=== PATIENT | female | born 1950 | race Caucasian/White ===

== ENCOUNTER 2020-11-18 15:34 | Observation (INO) | payer OTHER, MEDICAID, SELFPAY ==
[~2020-11-18] VITALS: Ht 170.2 cm; Wt 101.3 kg
[2020-11-18 15:35] VITALS: BP_SYST 139
[2020-11-18 16:23] LABS: BASOPHILS % (AUTO) 0.8 % (0.0-2.0); EOSINOPHILS # (AUTO) 0.1 K/uL (0.0-0.4); EOSINOPHILS % (AUTO) 1.2 % (0.0-4.0); HEMATOCRIT 39.7 % (36-48); HEMOGLOBIN 13.3 g/dL (12.0-16.0); LYMPHOCYTES # (AUTO) 0.6 K/uL (1.0-5.5); LYMPHOCYTES % (AUTO) 10.7 % (20.5-51.5); MEAN CORPUSCULAR HEMOGLOBIN 28 pg (27-31); MEAN CORPUSCULAR HGB CONC 34 % (32-36); MEAN CORPUSCULAR VOLUME 84 fL (79.0-98.0); MONOCYTES # (AUTO) 0.3 K/uL (0.0-1.0); MONOCYTES % (AUTO) 5.5 % (1.7-9.3); NEUTROPHILS # (AUTO) 4.8 K/uL (1.8-7.7); NEUTROPHILS % (AUTO) 81.8 % (40.0-70.0); PLATELET COUNT (AUTO) 130 K/uL (130-430); RED CELL DISTRIBUTION WIDTH 15.2 % (9.0-15.0); WHITE BLOOD COUNT (AUTO) 5.9 K/uL (4.8-10.8)
[2020-11-18 16:37] LABS: CALCIUM 9.2 mg/dL (8.4-11.0); CREATININE 1.7 mg/dL (0.55-1.30); POTASSIUM 3.7 mmol/L (3.5-5.1)
[2020-11-18 16:46] LABS: ALBUMIN 3.2 g/dL (3.4-4.8); TOTAL BILIRUBIN 0.3 mg/dL (0.0-1.0)
[2020-11-18] MEDS ORDERED: GABA-529 PO (18:30)
[2020-11-18] MEDS ORDERED: PANT20TA2 PO (18:30)
[2020-11-18] MEDS ORDERED: AMLO10TA88 PO (18:30)
[2020-11-18] MEDS ORDERED: METO25TA6 PO (18:30)
[2020-11-18] MEDS ORDERED: LOSA25TA3 PO (18:30)
[2020-11-18] MEDS ORDERED: CETI-250 PO (18:30)
[2020-11-18] MEDS ORDERED: LIP10 PO (18:30)
[2020-11-18] MEDS ORDERED: TRAZ300T11 PO (18:30)
[2020-11-18] MEDS ORDERED: MORP15TA60 PO (18:30)
[2020-11-18] MEDS ORDERED: NALOXONE HCL 0.4 MG/ML AMP (NARCAN) IVP PRN (19:15)
[2020-11-18] MEDS ORDERED: ALBUTEROL SULFATE 0.083% 2.5 MG/3 ML VIAL.NEB INH PRN (19:15)
[2020-11-18] MEDS ORDERED: ACETAMINOPHEN 325 MG TABLET PO PRN (19:15)
[2020-11-18] MEDS ORDERED: MORPHINE 2 MG/ML INJ. SYRINGE IVP PRN (19:30)
[2020-11-18] MEDS ORDERED: METOPROLOL TARTRATE 25 MG TABLET PO SCH (21:00)
[2020-11-18] MEDS: GABAPENTIN 100 MG CAPSULE PO SCH (21:18)
[2020-11-18] MEDS: traZODone HCL 50 MG TABLET (DESYREL) PO SCH (21:18)
[2020-11-18] MEDS: HYDROcodone/ACETAMIN 5-325 MG TAB (NORCO/ VICODIN) PO PRN (21:19)
[2020-11-18 22:45] VITALS: BP_SYST 152
[2020-11-19 01:45] VITALS: BP_SYST 163
[2020-11-19] MEDS: HYDROcodone/ACETAMIN 5-325 MG TAB (NORCO/ VICODIN) PO PRN ×2 (04:15→12:35)
[2020-11-19 07:27] LABS: BASOPHILS % (AUTO) 0.6 % (0.0-2.0); EOSINOPHILS # (AUTO) 0.1 K/uL (0.0-0.4); EOSINOPHILS % (AUTO) 2.1 % (0.0-4.0); HEMATOCRIT 36.2 % (36-48); HEMOGLOBIN 12.1 g/dL (12.0-16.0); LYMPHOCYTES # (AUTO) 1.6 K/uL (1.0-5.5); LYMPHOCYTES % (AUTO) 30.9 % (20.5-51.5); MEAN CORPUSCULAR HEMOGLOBIN 28 pg (27-31); MEAN CORPUSCULAR HGB CONC 33 % (32-36); MEAN CORPUSCULAR VOLUME 85 fL (79.0-98.0); MONOCYTES # (AUTO) 0.3 K/uL (0.0-1.0); MONOCYTES % (AUTO) 6.7 % (1.7-9.3); NEUTROPHILS % (AUTO) 59.7 % (40.0-70.0); PLATELET COUNT (AUTO) 126 K/uL (130-430); RED BLOOD CELL COUNT(AUTO) 4.26 MIL/uL (4.2-6.2); RED CELL DISTRIBUTION WIDTH 15.2 % (9.0-15.0); WHITE BLOOD COUNT (AUTO) 5.1 K/uL (4.8-10.8)
[2020-11-19 07:41] LABS: ALBUMIN 2.8 g/dL (3.4-4.8); CREATININE 1.48 mg/dL (0.55-1.30); POTASSIUM 4.2 mmol/L (3.5-5.1); TOTAL BILIRUBIN 0.3 mg/dL (0.0-1.0)
[2020-11-19 07:56] VITALS: BP_SYST 121
[2020-11-19] MEDS: LOSARTAN POTASSIUM 25 MG TABLET PO SCH (08:51)
[2020-11-19] MEDS: ASPIRIN 81 MG TAB.CHEW PO SCH (08:52)
[2020-11-19] MEDS: PANTOPRAZOLE SODIUM 40 MG TAB PO SCH (08:53)
[2020-11-19] MEDS: GABAPENTIN 100 MG CAPSULE PO SCH ×3 (08:53→21:10)
[2020-11-19] MEDS: amLODIPine BESYLATE 10 MG TABLET PO SCH (08:53)
[2020-11-19] MEDS ORDERED: *LOVENOX 1MG/KG Q12H/PHARMACY XX ONE (09:00)
[2020-11-19] MEDS ORDERED: ENOXAPARIN SODIUM 40 MG/0.4 ML SYRINGE SUBCUT SCH (09:00)
[2020-11-19] MEDS: ATORVASTATIN 20 MG TABLET PO SCH (09:03)
[2020-11-19] MEDS ORDERED: ENOXAPARIN SODIUM 60 MG/0.6 ML SYRINGE SUBCUT ONE (09:30)
[2020-11-19 12:00] VITALS: BP_SYST 135
[2020-11-19] MEDS: MORPHINE SULFATE 15 MG TABLET.ER PO SCH ×2 (16:47→21:10)
[2020-11-19 20:00] VITALS: BP_SYST 131
[2020-11-19] MEDS: ENOXAPARIN SODIUM 100 MG/ML SYRINGE SUBCUT SCH (21:00)
[2020-11-19] MEDS: traZODone HCL 50 MG TABLET (DESYREL) PO SCH (21:10)
[2020-11-20] VITALS: BP_SYST 150
[2020-11-20] MEDS: MORPHINE SULFATE 15 MG TABLET.ER PO SCH (05:30)
[2020-11-20 08:00] VITALS: BP_SYST 125
[2020-11-20 08:22] LABS: BASOPHILS % (AUTO) 0.7 % (0.0-2.0); EOSINOPHILS # (AUTO) 0.1 K/uL (0.0-0.4); EOSINOPHILS % (AUTO) 2.1 % (0.0-4.0); HEMATOCRIT 36.2 % (36-48); HEMOGLOBIN 12.2 g/dL (12.0-16.0); LYMPHOCYTES % (AUTO) 41.1 % (20.5-51.5); MEAN CORPUSCULAR HEMOGLOBIN 28 pg (27-31); MEAN CORPUSCULAR HGB CONC 34 % (32-36); MEAN CORPUSCULAR VOLUME 85 fL (79.0-98.0); MONOCYTES # (AUTO) 0.3 K/uL (0.0-1.0); NEUTROPHILS # (AUTO) 2.4 K/uL (1.8-7.7); NEUTROPHILS % (AUTO) 49.1 % (40.0-70.0); PLATELET COUNT (AUTO) 119 K/uL (130-430); RED BLOOD CELL COUNT(AUTO) 4.29 MIL/uL (4.2-6.2); RED CELL DISTRIBUTION WIDTH 14.8 % (9.0-15.0)
[2020-11-20 08:38] LABS: ALBUMIN 2.7 g/dL (3.4-4.8); CALCIUM 8.9 mg/dL (8.4-11.0); CREATININE 1.54 mg/dL (0.55-1.30); POTASSIUM 4.2 mmol/L (3.5-5.1); TOTAL BILIRUBIN 0.3 mg/dL (0.0-1.0)
[2020-11-20] MEDS: amLODIPine BESYLATE 10 MG TABLET PO SCH ×2 (09:00→09:02)
[2020-11-20] MEDS: GABAPENTIN 100 MG CAPSULE PO SCH (09:01)
[2020-11-20] MEDS: PANTOPRAZOLE SODIUM 40 MG TAB PO SCH (09:01)
[2020-11-20] MEDS: ASPIRIN 81 MG TAB.CHEW PO SCH (09:01)
[2020-11-20] MEDS: ATORVASTATIN 20 MG TABLET PO SCH (09:01)
[2020-11-20] MEDS: LOSARTAN POTASSIUM 25 MG TABLET PO SCH (09:03)
[2020-11-20] MEDS: ENOXAPARIN SODIUM 100 MG/ML SYRINGE SUBCUT SCH (09:08)
[2020-11-20 09:57] VITALS: BP_SYST 125
== END 2020-11-20 17:42 | disposition critical access hospital (66) ==
LOC: SED 15:34 → INTOOBSV 18:02 → STU 18:02
PROVIDERS: ADMIT Internal Medicine Hospice and Palliative Medicine; ATTEND Internal Medicine Hospice and Palliative Medicine
DX: R07.89 Other chest pain (principal); Z20.822 Contact with and (suspected) exposure to COVID-19; I25.119 Atherosclerotic heart disease of native coronary artery with unspecified angina pectoris; I12.9 Hypertensive chronic kidney disease with stage 1 through stage 4 chronic kidney disease, or unspecified chronic kidney disease; N18.9 Chronic kidney disease, unspecified; E78.5 Hyperlipidemia, unspecified; N17.9 Acute kidney failure, unspecified; E88.09 Other disorders of plasma-protein metabolism, not elsewhere classified; E43 Unspecified severe protein-calorie malnutrition; I24.9 Acute ischemic heart disease, unspecified; J44.9 Chronic obstructive pulmonary disease, unspecified; G89.4 Chronic pain syndrome; I73.9 Peripheral vascular disease, unspecified; I25.2 Old myocardial infarction; F17.210 Nicotine dependence, cigarettes, uncomplicated; Z90.2 Acquired absence of lung [part of]; Z99.81 Dependence on supplemental oxygen; Z85.118 Personal history of other malignant neoplasm of bronchus and lung; Z79.01 Long term (current) use of anticoagulants; Z79.899 Other long term (current) drug therapy
CPT/HCPCS: 36415 ×3; 71045 ×2; 80053 ×3; 80061; 83880; 84484 ×3; 85025 ×3; 87426; 93005 ×3; 93306; 94760; 96372 ×2; 99285; G0378 ×3; J1650 ×3

== ENCOUNTER 2020-11-25 19:12 | Emergency (ER) | payer OTHER, SELFPAY ==
[~2020-11-25] VITALS: Ht 170.2 cm; Wt 98.4 kg
[2020-11-25 19:12] VITALS: BP_SYST 138
[~2020-11-25 19:12] MED LIST: AMLO10TA88 PO; CETI-250 PO; GABA-529 PO; LIP10 PO; LOSA25TA3 PO; METO25TA6 PO; MORP15TA60 PO; PANT20TA2 PO; TRAZ300T11 PO
[2020-11-25] MEDS ORDERED: LIP80 PO (19:29)
[2020-11-25] MEDS ORDERED: CLOP75TA32 PO (19:31)
[2020-11-25] MEDS ORDERED: ASA81 PO (19:32)
--- NOTE | 2020-11-25 19:38 | NUR ---
Placed in room 03 . Placed on color television console monitor, blood pressure machine and pulse oximeter. To gown for exam. Side rails up. Report given to YANY Vasquez
--- NOTE | 2020-11-25 19:40 | NUR ---
PATIENT AAOX4 FROM HOME BIB BLS C/O PALPITATION AND CHEST PAIN THAT STARTED EARLIER. CURRENTLY STATING 6/10 ON THE PAIN SCALE. PER PATIENT STATED DISCOMFORT RADIATES TO LEFT ARM. DENIES ANY DIZZINESS OR HEADACHE. VSS. PLACED ON OXYGEN O2 SAT @90%. 2L NC PLACED. USUALLY USES OXYGEN FOR COPD AT HOME. CAP REFILL <3 SECONDS.
--- NOTE | 2020-11-25 19:50 | NUR ---
PORTABLE XRAY DONE AT BEDSIDE.
--- NOTE | 2020-11-25 19:55 | NUR ---
DR. AWNA AT BEDSIDE FOR EVALUATION.
[2020-11-25] MEDS ORDERED: NITROGLYCERIN 0.4 MG TAB.SUBL SL ONE (20:00)
--- NOTE | 2020-11-25 20:14 | NUR ---
MEDICATION ADMINISTERED ORDERED.
--- NOTE | 2020-11-25 21:40 | NUR ---
LAB AT BEDSIDE TO COLLECT SPECIMEN. URINE SPECIMEN COLLECTED.
[2020-11-25 21:51] LABS: BASOPHILS % (AUTO) 0.9 % (0.0-2.0); EOSINOPHILS % (AUTO) 0.7 % (0.0-4.0); HEMATOCRIT 35.6 % (36-48); HEMOGLOBIN 11.9 g/dL (12.0-16.0); LYMPHOCYTES # (AUTO) 1.3 K/uL (1.0-5.5); LYMPHOCYTES % (AUTO) 21.4 % (20.5-51.5); MEAN CORPUSCULAR HEMOGLOBIN 29 pg (27-31); MEAN CORPUSCULAR HGB CONC 33 % (32-36); MEAN CORPUSCULAR VOLUME 86 fL (79.0-98.0); MONOCYTES # (AUTO) 0.3 K/uL (0.0-1.0); MONOCYTES % (AUTO) 4.8 % (1.7-9.3); NEUTROPHILS # (AUTO) 4.2 K/uL (1.8-7.7); NEUTROPHILS % (AUTO) 72.2 % (40.0-70.0); PLATELET COUNT (AUTO) 138 K/uL (130-430); RED BLOOD CELL COUNT(AUTO) 4.17 MIL/uL (4.2-6.2); RED CELL DISTRIBUTION WIDTH 15.1 % (9.0-15.0); WHITE BLOOD COUNT (AUTO) 5.8 K/uL (4.8-10.8)
[2020-11-25 21:55] LABS: BILIRUBIN,URINE NEGATIVE (NEGATIVE); BLOOD, URINE NEGATIVE (NEGATIVE); CLARITY/URINE CLEAR (CLEAR); COLOR,URINE YELLOW (YELLOW); GLUCOSE,URINE NEGATIVE (NEGATIVE); KETONES,URINE NEGATIVE (NEGATIVE); LEUKOCYTE ESTERASE ,URINE NEGATIVE (NEGATIVE); NITRITE, URINE NEGATIVE (NEGATIVE); PH,URINE 6.5 (5.0-8.0); PROTEIN URINE NEGATIVE (NEGATIVE); UROBILINOGEN,URINE 0.2 (0.2-1.0)
[2020-11-25 22:06] LABS: INR 0.9 (0.8-1.2); PROTHROMBIN TIME 10.1 SECS (9.5-12.5)
[2020-11-25 22:08] LABS: ALBUMIN 2.9 g/dL (3.4-4.8); CALCIUM 9.8 mg/dL (8.4-11.0); CREATININE 1.55 mg/dL (0.55-1.30); POTASSIUM 4.5 mmol/L (3.5-5.1); TOTAL BILIRUBIN 0.2 mg/dL (0.0-1.0)
[2020-11-26] MEDS ORDERED: LIP80 PO (01:15)
[2020-11-26] MEDS ORDERED: NEU300 PO (01:15)
--- NOTE | 2020-11-26 01:19 | NUR ---
Medication reconciliation completed with information provided by PATIENT. Any prior medication reconciliation on file was reviewed and corrected.
--- NOTE | 2020-11-26 01:20 | NUR ---
Patient's code status is FULL CODE paperwork completed and placed in chart.
--- NOTE | 2020-11-26 02:30 | NUR ---
Patient resting quietly. No acute distress noted. Vital signs within normal range. AWAITING FOR DISPOSITION.
[2020-11-26 03:30] VITALS: BP_SYST 184
--- NOTE | 2020-11-26 03:30 | NUR ---
Patient given written and verbal discharge instructions and verbalizes understanding. DR. JARAD MILLER MD discussed with patient the results and treatment provided. Patient in stable condition. ID arm band removed. Patient educated on pain management and to follow up with PMD. Pain Scale 0/10 Opportunity for questions provided and answered. Medication side effect fact sheet provided.
== END 2020-11-26 03:30 | disposition home or self-care (01) ==
LOC: SED 19:12 → UNDOADMIN 20:20 → SIC 20:20 → SED 11-26 03:30
DX: I25.10 Atherosclerotic heart disease of native coronary artery without angina pectoris (principal); R00.2 Palpitations; R07.89 Other chest pain; I10 Essential (primary) hypertension; Z79.899 Other long term (current) drug therapy; Z79.82 Long term (current) use of aspirin; Z20.822 Contact with and (suspected) exposure to COVID-19
CPT/HCPCS: 36415; 71045; 80053; 81003; 83880; 84484; 85025; 85610-TC; 85730-TC; 87081; 93005; 99284; 99285